=== PATIENT | male | born 1995 | race Caucasian/White ===

== ENCOUNTER 2018-05-03 22:42 | Emergency (ER) | payer BC ==
[2018-05-04] MEDS: KETOROLAC 30 MG INJ IM (02:55)
[2018-05-04] MEDS: DIAZEPAM 5 MG TAB PO (02:55)
== END 2018-05-04 04:19 | disposition left against medical advice (07) ==
LOC: FTE 22:42
DX: S16.1XXA Strain of muscle, fascia and tendon at neck level, initial encounter (principal); R40.2412 Glasgow coma scale score 13-15, at arrival to emergency department; X58.XXXA Exposure to other specified factors, initial encounter; Y92.9 Unspecified place or not applicable
CPT/HCPCS: 96372; 99284-25